=== PATIENT | female | born 1950 | race Caucasian/White ===

== ENCOUNTER 2018-01-14 09:46 | Emergency (ER) | payer OTHER ==
[~2018-01-14] VITALS: Ht 157.5 cm; Wt 109.0 kg
[~2018-01-14 09:46] MED LIST: AMITRIPTYLINE H10 MG PO; ASPIRIN81 M2 PO; CALCIUM 600 +1 EA15 PO; CALCIUM 600 +1 EA16 PO; CEFDINIR300 MG PO; CIPRO500 MG PO; DAILY VALUE1 EACH PO; DIAZEPAM5 MG PO; FISH OIL 1,0001 EAC7 PO; FISH OIL 1,2001 EAC4 PO; GLUCOSAMINE &1 EACH PO; HYDROCODON-ACE1 EAC7 PO; NAPROSYN500 MG PO; PRAVACHOL40 MG PO; PROBIOTIC1 EAC1 PO; PROTONIX40 MG PO; PSORIASIS CREAM TP; PSORIASIS OINTMENT TP; PYRIDIUM200 MG PO; VITAMIN C500 M1 PO; ZESTORETIC 20-1 EAC1 PO
[2018-01-14 10:53] LABS: BASOPHIL (%) 0.9 % (0-1); BASOPHIL COUNT 0.1 K/uL (0-0.1); EOSINOPHIL (%) 2.1 % (0-5); EOSINOPHIL COUNT 0.2 K/uL (0-0.3); HEMATOCRIT 40.4 % (36.0-46.0); HEMOGLOBIN 13.4 G/DL (11.9-15.5); IMMATURE GRANULOCYTE (%) 0.3 % (0.0-0.7); LYMPHOCYTE (%) 22.8 % (15-42); MCH 29.1 PG (29.0-34.0); MCHC 33.2 G/DL (30.0-36.0); MCV 87.6 FL (83-99); MONOCYTE (%) 7.5 % (3-12); MONOCYTE COUNT 0.7 K/uL (0-0.8); NEUTROPHIL (%) 66.4 % (45-76); NEUTROPHIL COUNT 5.7 K/uL (1.8-6.4); PLATELET COUNT 285 K/uL (156-360); RBC DIS.WIDTH-CV 12.5 % (11.8-14.6); RED BLOOD COUNT 4.61 M/uL (3.80-5.20); WHITE BLOOD COUNT 8.7 K/uL (4.1-10.2)
[2018-01-14 11:04] LABS: INTER. NORMALIZED RATIO 1.1; PTT 30.4 SEC (25-37)
[2018-01-14 11:12] LABS: POTASSIUM ND MEQ/L (3.7-5.4)
[2018-01-14 11:14] LABS: TROP-I INTERPRETATION NEGATIVE; TROPONIN-I < 0.01 ng/mL (0.0-0.30)
[2018-01-14 11:18] LABS: CHLORIDE 102 mEq/L (99-109); SODIUM 136 mEq/L (136-147)
[2018-01-14 11:20] LABS: GLUCOSE 105 mg/dL (70-99)
[2018-01-14 11:23] LABS: CREATININE 0.7 mg/dL (0.6-1.3); GFR ESTIMATE (CALCULATED) > 59 mL/min/
[2018-01-14 11:24] LABS: UREA NITROGEN (BUN) 14 mg/dL (9-23)
[2018-01-14 12:15] LABS: POTASSIUM 4.1 mEq/L (3.7-5.4)
[2018-01-14 14:06] VITALS: BP 155/87
== END 2018-01-14 14:07 | disposition home or self-care (01) ==
LOC: EME 09:46
PROVIDERS: Emergency Medicine
DX: R20.2 Paresthesia of skin (principal); R20.0 Anesthesia of skin; R94.31 Abnormal electrocardiogram [ECG] [EKG]; I10 Essential (primary) hypertension; E78.5 Hyperlipidemia, unspecified; Z79.82 Long term (current) use of aspirin; Z86.73 Personal history of transient ischemic attack (TIA), and cerebral infarction without residual deficits; Z90.49 Acquired absence of other specified parts of digestive tract; Z90.710 Acquired absence of both cervix and uterus; Z96.641 Presence of right artificial hip joint
CPT/HCPCS: 70450; 70551; 71045; 80048; 84484; 84999; 85025; 85610; 85730; 93005; 99281; 99285